=== PATIENT | male | born 1970 | race Caucasian/White ===

== ENCOUNTER 2021-08-05 01:34 | Emergency (ER) | payer OTHER, MEDICAID ==
[~2021-08-05] VITALS: Ht 177.8 cm; Wt 106.8 kg
--- NOTE | 2021-08-05 01:58 | PHYS DOC ---
Past Medical History Past Surgical History: Tonsillectomy Additional Past Surgical Histo: SKIN GRAFT, LEFT KNEE Smoking Status: Current Every Day Smoker Alcohol Use: Occasionally Social History Narrative: RECOVERING IV DRUG USER General Adult EDM: Chief Complaint: SKIN RASH/ABSCESS HPI: HPI: Patient is a 51 year old who was brought here by EMS from the local [facility] due to bilateral legs pain, knee pain and burning rash on his legs. Patient was admitted at [facility] 2 days ago for the same problem, was diagnosed with a condition called Leukocytoclastic vasculitis due to him taking Bactrim DS. Patient was discharged home from [facility] yesterday, he was sent home with oxycodone 5 mg AND [facility]QUEL [facility] [place], [place]. He came to [place], [place] to visit his brother and then went to [facility]. He started having burning sensation in his legs and his ankle, knee joints so he called EMS to take him here for evaluation . Patient denied any chest pain, no shortness of air. No abdominal pain, no n ausea or vomiting. Review of Systems: Review of Systems: Constitutional: Denies fever or chills. [] Eyes: Denies change in visual acuity. [] HENT: Denies nasal congestion or sore throat. [] Respiratory: Denies cough or shortness of breath. [] Cardiovascular: Denies chest pain or edema. [] GI: Denies abdominal pain, nausea, vomiting, bloody stools or diarrhea. [] : Denies dysuria. [] Musculoskeletal: Denies back pain, positive for knee joints pain, legs pain. Integument: positive for rash on legs Neurologic: Denies headache, focal weakness or sensory changes. [] Endocrine: Denies polyuria or polydipsia. [] Lymphatic: Denies swollen glands. [] Psychiatric: Denies depression or anxiety. [] Heart Score: C/O Chest Pain: N/A Risk Factors: Risk Factors: DM, Current or recent (<one month) smoker, HTN, HLP, family history of CAD, obesity. Risk Scores: Score 0 - 3: 2.5% MACE over next 6 weeks - Discharge Home Score 4 - 6: 20.3% MACE over next 6 weeks - Admit for Clinical Observation Score 7 - 10: 72.7% MACE over next 6 weeks - Early Invasive Strategies Physical Exam: PE: Constitutional: Well developed, well nourished, no acute distress, non-toxic appearance. [] HENT: Normocephalic, atraumatic, bilateral external ears normal, oropharynx moist, no oral exudates, nose normal. [] Eyes: PERRLA, EOMI, conjunctiva normal, no discharge. [] Neck: Normal range of motion, no tenderness, supple, no stridor. [] Cardiovascular:Heart rate regular rhythm, no murmur [] Lungs & Thorax: Bilateral breath sounds clear to auscultation [] Abdomen: Bowel sounds normal, soft, no tenderness, no masses, no pulsatile masses. [] Skin: Warm, dry, diffuse raised papular rash on both legs. Back: No tenderness, no CVA tenderness. [] Extremities: No tenderness, no cyanosis, no clubbing, ROM intact, no edema. [] Neurologic: Alert and oriented X 3, normal motor function, normal sensory function, no focal deficits noted. [] Psychologic: Affect normal, judgement normal, mood normal. [] Current Patient Data: Vital Signs: Vital Signs Date Time Temp Pulse Resp B/P (MAP) Pulse Ox O2 Delivery O2 Flow Rate FiO2 08/05/21 01:36 97.2 95 14 175/92 (119) 99 Room Air 97.2 EKG: EKG: [] Radiology/Procedures: Radiology/Procedures: [] Course & Med Decision Making: Course & Med Decision Making Pertinent Labs and Imaging studies reviewed. (See chart for details) Patient is a 51-year-old male who was brought here by EMS for evaluation of bilateral lower extremity rash and knee joints pain. Patient was evaluated and treated at [facility] couple days ago for the same problem, diagnosed with Leukocytoclastic vasculitis. Patient would you discharged from 2 1 yesterday. Patient was sent home with oxycodone and Seroquel. Patient [facility]. Patient came in because of the pain and redness in his legs. Patient's condition patient is consistent with leukocytoclastic vasculitis which was diagnosed recently at [facility]. There is no need for any diagnostic work-up today. Patient might be beneficial to be on NSAID and steroids. Patient will be discharged home with these medications. Silvina Disclaimer: Silvina Disclaimer: This electronic medical record was generated, in whole or in part, using a voice recognition dictation system. Departure Departure Impression: Primary Impression: Rash and nonspecific skin eruption Disposition: HOME / SELF CARE / HOMELESS Condition: IMPROVED Patient Instructions: Rash Additional Instructions: Follow up with your doctor as [facility] this week. Scripts Prednisone (PREDNISONE) 20 Mg Tablet 2 TAB PO DAILY for 7 Days, #14 TAB Prov: ANABELA MATTHEWS DO 08/05/21 Naproxen Sodium (ANAPROX DS) 550 Mg Tablet 1 TAB PO BID PRN for PAIN for 15 Days, #30 TAB 0 Refills Prov: ANABELA MATTHEWS DO 08/05/21 ANABELA MATTHEWS DO August 05, 2021 01:58
[2021-08-05] MEDS ORDERED: KETOROLAC 30 MG/ML VIAL. IVP ONE (02:00)
[2021-08-05] MEDS ORDERED: FAMOTIDINE 20 MG/2 ML VIAL IVP ONE (02:00)
[2021-08-05] MEDS ORDERED: IV NORMAL SALINE 1000ML BAG 1,000 ML IV ONE (02:00)
[2021-08-05] MEDS ORDERED: diphenhydrAMINE 50 MG/ML VIAL IVP ONE (02:00)
[2021-08-05] MEDS ORDERED: methylPREDNISolone SOD SUCC PF 125 MG/2 ML VIAL. IV ONE (02:00)
[2021-08-05 03:04] VITALS: BP 149/71
[2021-08-05] MEDS ORDERED: NAPR-682 PO (03:44)
[2021-08-05] MEDS ORDERED: PRED20TA PO (03:44)
[2021-08-05] MEDS ORDERED: oxyCODONE IR 5 MG TABLET PO ONE (03:45)
== END 2021-08-05 04:14 | disposition home or self-care (01) ==
LOC: ER 01:34
DX: R21 Rash and other nonspecific skin eruption (principal); M79.604 Pain in right leg; M79.605 Pain in left leg; M25.561 Pain in right knee; M25.562 Pain in left knee; F17.200 Nicotine dependence, unspecified, uncomplicated
CPT/HCPCS: 96361; 96374; 96375; 99284; J1200; J1885; J2930; J3490; J7030